=== PATIENT | male | born 1990 | race Caucasian/White ===

== ENCOUNTER 2021-04-18 22:44 | Emergency (ER) | payer OTHER, SELFPAY ==
[2021-04-18 23:12] VITALS: BMI 24.4
[2021-04-18 23:15] VITALS: BP 140/77; PULSE 67; RESP 22; TEMP 36.1; O2SAT 100
--- NOTE | 2021-04-18 23:17 | ED.DENTAL ---
HPI - Dental/Oral General Chief complaint: Dental/Oral Stated complaint: tooth pain broken tooth Time Seen by Provider: 04/18/21 23:17 Source: patient Mode of arrival: ambulatory Limitations: no limitations History of Present Illness HPI Narrative: 30 old male presents to the ER for evaluation of acute onset of severe sudden left lower dental pain that started few hours ago. The pain has been getting worse. It started randomly as he was caring for his son. No recent trauma but he reports this tooth has been cracked for some time now. He has not seen a dentist in a long time. He has a history of several cavities with metal fillings on most of his lower teeth. He denies any facial swelling. He took Motrin 800 mg and use Orajel prior to coming in with no relief. Denies any fever or chills. MD Complaint: tooth pain Location: Tooth # (18) Onset (ago): hour(s) Duration: constant Severity: severe Severity scale (1-10): 10 Relieving factors: nothing Exacerbating factors: nothing Context: history of dental caries, trauma (mechanism) and poor dental care Treatment prior to arrival: topical analgesic and oral analgesic Related Data Previous Rx's Medication Instructions Recorded clindamycin HCl 300 mg capsule 300 mg PO Q6H 7 Days #28 cap 04/18/21 ibuprofen 800 mg tablet 800 mg PO Q8H PRN #30 tab 04/18/21 tramadol 50 mg tablet 50 mg PO Q6H PRN #10 tab 04/18/21 Allergies Allergy/AdvReac Type Severity Reaction Status Date / Time piperacillin [From ZOSYN] Allergy Mild ITCHING Verified 04/18/21 23:12 tazobactam [From ZOSYN] Allergy Mild ITCHING Verified 04/18/21 23:12 Review of Systems Constitutional: Constitutional: Denies chills and Denies fever(s) Eyes: Eyes: Reports no additional eye complaints ENT: Reports Normal hearing present, Reports dental pain, Denies dysphagia, Reports otalgia, Reports facial pain, Denies mouth lesions, Denies mouth pain, Denies nasal congestion, Denies nose pain, Denies sinus pain, Denies sinus pressure, Denies throat swelling and Denies tongue swelling Cardiovascular: Cardiovascular: Denies chest pain Respiratory: Respiratory: Denies cough Gastrointestinal: Gastrointestinal: Denies dysphagia Musculoskeletal: Musculoskeletal: Denies myalgias Neurologic: Reports Normal hearing present Psychiatric: Psychiatric: Reports anxiety Hematologic/Lymphatic: Hematologic/Lymphatic: Denies easy bleeding Allergic/Immunologic: Allergic/Immunologic: Denies throat swelling and Denies tongue swelling PMFSH Social History Social History Advance Directives: No Physical Exam Vital Signs: Vital Signs: Last Vital Signs Temp 97 F 04/18/21 23:15 Pulse 67 04/18/21 23:15 Resp 22 H 04/18/21 23:15 BP 140/77 H 04/18/21 23:15 Pulse Ox 100 04/18/21 23:15 BMI result Body Mass Index 24.4 Const: General: cooperative, healthy appearing, acute distress (in pain) mild and anxious Nutritional Appearance: average body habitus Orientation/consciousness: patient oriented x3 Limitations: no limitations HENMT: Head: Yes normal to inspection, Yes normocephalic and Yes atraumatic Ears: hearing grossly normal bilaterally and external ears normal General nose exam: Normal external nose present and Normal nares present Face and sinus: Yes normal facial exam and Yes face symmetric Mouth: Normal oral and palatal mucosa present, lip normal, tongue normal, oropharynx normal and moist mucous membranes Teeth and gingiva: abnormal tooth and associated gingiva lower left second molar tender and with associated gingival edema and gingiva abnormal tender Throat: Yes posterior oropharynx normal, Yes tonsils normal and Yes uvula midline Eyes: General: appearance normal, both eyes and all related structures Neck: Neck: Yes normal visual inspection, Yes full ROM and Yes no lymphadenopathy Chest: Chest palpation & inspection: normal inspection of the chest Resp: Effort & Inspection: normal respiratory effort and able to speak in complete sentences Skin: General skin exam: no rashes or lesions noted Neuro: General: patient oriented x3 and gait normal Cranial nerves: Yes Normal hearing present Extrem: General: Yes normal to inspection and Yes full ROM Psych: Appearance: grossly normal and well kempt Mental Status: mental status grossly normal Speech and movement: Normal speech and movement present Course Course Course Narrative: 30 y/o male presenting with left lower dental pain that came on suddenly this evening. Hx cracked tooth No evidence of abscess. He will call his dentist tomorrow will give Rx for NSAID, empiric abx and tramadol for pain control. stable for d/c Discharge Plan Discharge Clinical Impression: Toothache Patient Disposition: Home, Self-Care Instructions: Toothache (ED) Additional Instructions: Take the prescribed medications as directed - they were sent to [facility] on [address] Call your dentist [facility] Prescriptions: New clindamycin HCl 300 mg capsule 300 mg PO Q6H 7 Days Qty: 28 RF: 0 ibuprofen 800 mg tablet 800 mg PO Q8H PRN (Reason: fever or pain) Qty: 30 RF: 0 tramadol 50 mg tablet 50 mg PO Q6H PRN (Reason: pain) Qty: 10 RF: 0 Interventions: ED Discharge Assessment Last Done: 04/18/21 23:28 Discharge Date/Time: 04/18/21 23:30
--- NOTE | 2021-04-18 23:29 | PC.NURSE ---
pt discharged per ED team, given ice packs and instructions to return to dentist [facility], Rxs reviewed, ambulatory w/ steady gait out of dept, no PIV
== END 2021-04-18 23:30 | disposition home or self-care (01) ==
PROVIDERS: Emergency Provider Internal Medicine
DX: K08.89 Other specified disorders of teeth and supporting structures (principal); K02.9 Dental caries, unspecified
CPT/HCPCS: 99283